=== PATIENT | female | born 1975 | race Caucasian/White ===

== ENCOUNTER 2016-12-14 06:55 | Day surgery (SDC) | payer OTHER ==
[~2016-12-14] VITALS: Ht 172.7 cm; Wt 121.6 kg
[~2016-12-14 06:55] MED LIST: CALCIUM 600 +1 EAC4 PO; CLARITIN,ALAVAR10 MG PO; CLINDAMYCIN HC300 MG PO; MEGACE20 MG PO; NAPROXEN500 MG PO; VITAMIN D5000 UNI1 PO
[2016-12-14 07:58] VITALS: BP 136/73
[2016-12-14 14:37] VITALS: BP 108/53
[2016-12-14 19:35] VITALS: BP 124/64
[2016-12-15 00:02] VITALS: BP 118/62
[2016-12-15 03:51] VITALS: BP 110/56
[2016-12-15 07:11] LABS: HEMATOCRIT 28.9 % (36.0-46.0); MCH 22.2 PG (29.0-34.0); MCHC 30.4 G/DL (30.0-36.0); MCV 72.8 FL (83-99); MEAN PLAT.VOLUME 10.6 uM^3 (9.5-12.4); PLATELET COUNT 280 K/uL (156-360); RBC DIS.WIDTH-CV 16.1 % (11.8-14.6); RBC DIS.WIDTH-SD 41.6 % (39-53); RED BLOOD COUNT 3.97 M/uL (3.80-5.20); WHITE BLOOD COUNT 8.4 K/uL (4.1-10.2)
[2016-12-15 07:12] VITALS: BP 126/61
[2016-12-15] MEDS ORDERED: ENDOCET 5-3251 EACH PO (08:56)
[2016-12-15] MEDS ORDERED: FEROCON CAPSUL1 EACH PO (08:56)
[2016-12-15] MEDS ORDERED: IBUPROFEN800 MG PO (08:56)
== END 2016-12-15 11:55 | disposition home or self-care (01) ==
LOC: SDC 06:55 → 2EASTP 11:18 → 2SOUTH 11:18 → 2EASTP 14:26 → SDC 15:20 → 2EASTP 12-15 11:55
PROVIDERS: Obstetrics & Gynecology Obstetrics
DX: N72 Inflammatory disease of cervix uteri (principal); N92.0 Excessive and frequent menstruation with regular cycle; N93.8 Other specified abnormal uterine and vaginal bleeding; N83.8 Other noninflammatory disorders of ovary, fallopian tube and broad ligament; H91.3 Deaf nonspeaking, not elsewhere classified; Z80.3 Family history of malignant neoplasm of breast
CPT/HCPCS: 85027; 88307; 94799; G0378; J0690; J1100; J1170; J1885; J2250; J2405; J3010; J7120; S0020